=== PATIENT | female | born 1970 | race Caucasian/White ===

== ENCOUNTER 2022-11-17 11:22 | Inpatient (IN) | payer MEDICAID, SELFPAY ==
[2022-11-17 11:36] VITALS: BMI 22.4
[2022-11-17 11:37] VITALS: BP 108/65; PULSE 76; RESP 16; TEMP 36.8; O2SAT 96
--- NOTE | 2022-11-17 13:13 | PC.NURSE ---
PT CAME VIA DIRECT ADMIT FROM [facility]. PT ARRIVED TO THEIR EMERGENCY DEPARTMENT VIA LAW ENFORCEMENT WITH COMPLAIN OF BIZARRE BEHAVIOR AND SI. PT HAS A PRIOR DIAGNOSIS OF AMPHETAMINE INDUCED PSYCHOSIS. PT STATED WHEN POLICE SHOWED UP SO YOU WANT ME TO KILL MYSELF AND KILL MY BABY? PT WAS HAVING ACTIVE HALLUCINATIONS IN THEIR EMERGENCY DEPARTMENT. UPON ADMIT TO OUR UNIT PT STATED I DONT KNOW WHY IM HERE, THE POLICE KNEW I HAD A GUN. PT CURRENTLY DENIES ANY DRUG USE OR SUICIDAL IDEATION. PT STATES YOU GUYS ARE KEEPING ME FROM MY 2 YEAR OLD AT HOME.
[2022-11-17 14:00] VITALS: BP 103/64; PULSE 64; RESP 16; TEMP 36.6; O2SAT 97
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
[2022-11-17] MEDS: ARIPiprazole 10 mg Tablet 5 MG PO (15:05)
[2022-11-17 20:09] VITALS: BP 111/65; PULSE 63; RESP 16; TEMP 36.9; O2SAT 93
[2022-11-18 06:00] VITALS: RESP 16
[2022-11-18] MEDS: ARIPiprazole 10 mg Tablet 5 MG PO ×2 (09:21→16:05)
[2022-11-18] MEDS: escitalopram 10 mg Tablet PO (09:21)
[2022-11-18 14:00] VITALS: BP 96/58; PULSE 69; RESP 16; TEMP 36.6; O2SAT 95
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
[2022-11-18 20:42] VITALS: BP 123/75; PULSE 68; RESP 16; O2SAT 96
[2022-11-19 06:00] VITALS: BP 109/77; PULSE 57; RESP 16; O2SAT 96
[2022-11-19] MEDS: ARIPiprazole 10 mg Tablet PO (09:37)
[2022-11-19] MEDS: escitalopram 10 mg Tablet PO ×2 (09:37→15:28)
[2022-11-19 14:00] VITALS: BP 105/61; PULSE 61; RESP 16; TEMP 37.1; O2SAT 95
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
[2022-11-19 20:14] VITALS: BP 114/73; PULSE 72; RESP 16; TEMP 37; O2SAT 97
[2022-11-20 06:00] VITALS: BP 119/73; PULSE 62; RESP 16; O2SAT 97
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
[2022-11-20 08:29] VITALS: BP 119/73; PULSE 62; RESP 16; O2SAT 97
[2022-11-20] MEDS: ARIPiprazole 10 mg Tablet 15 MG PO (08:36)
[2022-11-20] MEDS: escitalopram 10 mg Tablet 20 MG PO (08:36)
== END 2022-11-20 08:50 | disposition home or self-care (01) | DRG 885 ==
PROVIDERS: Admitting Provider Psychiatry & Neurology Psychiatry; Visit Provider Psychiatry & Neurology Psychiatry
DX: F29 Unspecified psychosis not due to a substance or known physiological condition (principal); F32.A Depression, unspecified; F22 Delusional disorders; Z91.128 Patient's intentional underdosing of medication regimen for other reason
CPT/HCPCS: 97165; 99238